=== PATIENT | male | born 1965 | race Two or more races ===

== ENCOUNTER 2024-06-04 02:21 | Emergency (ER) | payer MEDICAID ==
[~2024-06-04] VITALS: Ht 177.8 cm; Wt 125.0 kg
[2024-06-04] MEDS ORDERED: CLIN-142 PO (05:36)
[2024-06-04] MEDS ORDERED: TRAM50TA5 PO (05:36)
[2024-06-04] MEDS: TraMADol HCL 50 MG TABLET PO ONE (05:50)
[2024-06-04] MEDS: KETOROLAC TROMETHAMINE 30 MG/ML VIAL IM ONE (05:50)
[2024-06-04] MEDS: CEPHALEXIN MONOHYDRATE 500 MG CAPSULE PO ONE (05:50)
[2024-06-04] MEDS: CLINDAMYCIN HCL 150 MG CAPSULE PO ONE (05:51)
[2024-06-04] MEDS: CLINDAMYCIN PHOS 150 MG/ML 4 ML VIAL IM ONE (05:54)
[2024-06-04 06:34] VITALS: BP 151/89; PULSE 92; RESP 16; TEMP 97.3; O2SAT 100
== END 2024-06-04 06:43 | disposition home or self-care (01) ==
LOC: EMS 02:21
DX: M70.52 Other bursitis of knee, left knee (principal); L03.116 Cellulitis of left lower limb; F12.90 Cannabis use, unspecified, uncomplicated; Y93.89 Activity, other specified
CPT/HCPCS: 99284; 73562; 73590; 96372; J3490; J1885